=== PATIENT | male | born 1950 | race Hispanic/Latino ===

== ENCOUNTER 2018-12-18 18:07 | Emergency (ER) | payer MEDICARE, BC ==
--- NOTE | 2018-12-18 19:59 | RAD ---
Radiograph left fifth toe 3 views: HISTORY: 68-year-old male status post traumatic injury to fifth toe FINDINGS: There is prominent well-corticated osseous thickening of the entire fifth proximal phalanx except for the head. There is diffuse soft tissue swelling edema of the foot and fifth toe. No periostitis, permeative lesion, osteolytic lesion, or osteoblastic lesion. No dislocation. IMPRESSION: 1. Old, healed fracture deformity of proximal phalanx of left fifth toe. 2. No acute fracture identified. 3. Soft tissue edema of fifth toe.
== END 2018-12-18 20:30 | disposition home or self-care (01) ==
LOC: ERS 18:07
DX: S92.512D Displaced fracture of proximal phalanx of left lesser toe(s), subsequent encounter for fracture with routine healing (principal); S91.312D Laceration without foreign body, left foot, subsequent encounter; I25.2 Old myocardial infarction; G40.909 Epilepsy, unspecified, not intractable, without status epilepticus; Z79.899 Other long term (current) drug therapy

== ENCOUNTER 2019-04-27 10:56 | Observation (INO) | payer MEDICARE, BC ==
[2019-04-27 11:25] LABS: #Eosinphils 0.1 thou/uL (0.0-0.7); #Lymphocytes 1.7 thou/uL (1.20-3.40); #Monocytes 0.5 thou/uL (0.11-0.59); #Neutrophils 3.4 thou/uL (1.40-6.50); %Basophils 0.2 % (0.0-1.0); %Eosinophils 2.4 % (0.0-10.0); %Lymphocytes 28.6 % (21.0-51.0); %Monocytes 9.3 % (0.0-10.0); %Neutrophils 59.5 % (42.0-75.0); Hemoglobin 15.6 g/dL (14.0-18.0); Mean Corpuscular HGB CONC 34.3 g/dL (32.0-36.0); Mean Corpuscular Hemoglobin 33.2 pg (27.0-31.0); Platelet Count 180 thou/uL (130-400); RBC Distribution Width 11.2 % (11.5-14.5); Red Blood Cell (RBC) Count 4.69 mill/uL (4.70-6.10); White Blood Cell (WBC) Count 5.8 thou/uL (4.8-10.8)
--- NOTE | 2019-04-27 11:26 | RAD ---
XR Chest 1 View Portable HISTORY: Left-sided chest pain COMPARISON: 01/23/2016 FINDINGS: The heart size is normal. The lungs are well expanded without focal areas of consolidation, pneumothorax or pleural effusions. Left-sided stimulator device with leads extending into the neck is again seen. IMPRESSION: No radiographic evidence of acute cardiopulmonary process.
[2019-04-27 11:47] LABS: ALT (SGPT) 29 U/L (8-55); AST (SGOT) 31 U/L (5-34); Albumin 4.1 g/dL (3.4-4.8); Alkaline Phosphatase 128 U/L (40-110); Anion Gap 11 mmol/L (10-20); BUN (Urea Nitrogen) 12 mg/dL (8.4-25.7); Bilirubin, Total 0.5 mg/dL (0.2-1.2); CK (CPK) 182 U/L (30-200); Calc. Creatinine Clearance 0 mL/min (70-130); Calcium 8.9 mg/dL (7.8-10.44); Carbon Dioxide 25 mmol/L (23-31); Chloride 104 mmol/L (98-107); Estimated GFR-MDRD Greater than 90; Globulin 3.3 g/dL (2.4-3.5); Glucose 104 mg/dL (80-115); Lipase 50 U/L (8-78); Potassium 4.3 mmol/L (3.5-5.1); Protein, Total 7.4 g/dL (5.8-8.1); Sodium 136 mmol/L (136-145)
[2019-04-27] MEDS ORDERED: Nitroglycerin 2% Ointment 1 INCH/1 GM Packet ONE (12:21)
[2019-04-27] MEDS ORDERED: Aspirin Chewable 81 MG TAB ONE (12:21)
[2019-04-27] MEDS ORDERED: Acetaminophen 325 MG TAB PO PRN (14:58)
[2019-04-27] MEDS ORDERED: Acetaminophen 650 MG Suppository PR PRN (14:58)
[2019-04-27] MEDS ORDERED: Sodium Chloride 0.9% 1,000 ML IV SCH (15:00)
[2019-04-27 15:08] LABS: Troponin I Less than 0.010 ng/mL (< 0.028)
--- NOTE | 2019-04-27 16:04 | HP ---
PRIMARY CARE PHYSICIAN: Asad Rios DO CHIEF COMPLAINT: Chest pain. HISTORY OF PRESENT ILLNESS: Mr. Knox is a 68-year-old gentleman with a past medical history of hypertension, hyperlipidemia, and MN requiring cardiac stents x4 in 2015, who presents with complaints of recurring chest pain for the last 2 days. The patient states it has been lasting up to 15 seconds at a time and states it seems to be brought on with activity. He states at times while sitting, he feels the pain might start to come on. Typically if he remains seated, the sensation will resolve. However, if he gets up and mobilizes the pain will come. He states he normally massages the left side of his chest which helps to alleviate his discomfort. He describes a squeezing pain, which he rates 6 to 8/10 in severity. States the pain is nonradiating. Denies any associated symptoms such as palpitations, shortness of breath, or nausea/vomiting. Denies having any recent cough or hemoptysis. Has not had any trauma and states it is nontender to palpation. All other review of systems are negative. The patient was previously seen by Dr. Al who did a cardiac catheterization in February 2016 presenting with an MN. He had four stents placed. PAST MEDICAL HISTORY: 1. Hypertension. 2. Coronary artery disease. 3. History of MN in February 2016. 4. Hyperlipidemia. 5. History of epilepsy. 6. Sleep apnea on CPAP. 7. Hypothyroidism. PAST SURGICAL HISTORY: 1. Appendectomy. 2. Cardiac stents x4. 3. Nasal reconstruction. 4. Vagus nerve stimulator. SOCIAL HISTORY: The patient lives with his family. He is fully independent and ambulatory at baseline. Does not require any assistive devices. Denies any alcohol consumption or illicit drug use. He is a previous smoker, but quit several years ago. FAMILY HISTORY: Noncontributory. ALLERGIES: NO KNOWN DRUG ALLERGIES. CURRENT MEDICATIONS: 1. Levothyroxine. 2. Phenytoin. 3. Keppra. 4. Klonopin. 5. Plavix. 6. Lisinopril. 7. Atorvastatin. PHYSICAL EXAMINATION: GENERAL: The patient appears well developed, well nourished, is in no acute distress. He is resting comfortably on a stretcher. Denies any pain at present. VITAL SIGNS: Temperature 98.1, pulse 64, blood pressure 134/62, respirations 19 , and O2 saturation 97% on room air. HEENT: Normocephalic and atraumatic. Pupils are equal, round, and reactive to light. Sclerae icterus. Oropharynx is clear. NECK: Supple. LUNGS: Clear to auscultation bilaterally without any wheezes, rales, or rhonchi. CARDIAC: Regular rate and rhythm without audible murmurs, rubs, or gallops. No chest wall deformities or pain with palpation. ABDOMEN: Obese, soft, nontender, nondistended. Normoactive bowel sounds present. No guarding or rigidity. No renal angle tenderness. EXTREMITIES: No lower leg edema. SKIN: Warm and dry. NEUROLOGIC: Alert and oriented x3. No neuro deficits on exam. LABORATORY DATA: White count 5.8, hemoglobin 15.6, hematocrit 45.5, platelets 180. Sodium 136, potassium 4.3, chloride 104, carbon dioxide 25, anion gap 11, BUN 12, creatinine 0.81, GFR 90, glucose 104, calcium 8.9, total bilirubin 0.5, AST 31, ALT 29, alkaline phosphatase 128. CK 182, troponin negative. Albumin 4.1. Lipase normal. IMAGING DATA: Chest x-ray demonstrated no radiographic evidence of acute cardiopulmonary process. He is noted to have a left-sided stimulator device with leads extending into the neck. IMPRESSION AND PLAN: Mr. Knox is a 68-year-old gentleman, who is presenting with recurring chest pain x2 days. He has been referred for management of the following. 1. Acute coronary syndrome, rule out. An EKG done in the emergency department showed normal sinus rhythm with a heart rate of 67. No ST changes or T-wave abnormalities present. The patient was given 324 mg of aspirin and also given Nitro-Bid. He is pain free at present. Initial troponin negative and chest x- ray unremarkable. He will remain under continuous telemetry monitoring and we will continue to trend troponins. He is known to Dr. Al who performed a cardiac catheterization in 2016 with four stents placed at that time. Consultation placed by Dr. Al. 2. Hypertension. Resume home medications once verified. Monitor blood pressure. 3. Hyperlipidemia. Resume home medications once verified. We will add lipid panel morning labs. 4. Hypothyroidism. We will check TSH. Resume home medications once verified. 5. History of epilepsy. We will resume home medications once verified. 6. Deep venous thrombosis prophylaxis, mechanical SCDs. 7. Gastrointestinal prophylaxis. Famotidine 20 mg IV b.i.d. 8. Code status full. Surrogate decision maker is his , Vanessa Knox. The patient's case discussed with attending who agrees with plan of care as described above. Job ID: [id number] MTDD
[2019-04-27 18:13] LABS: Troponin I Less than 0.010 ng/mL (< 0.028)
[2019-04-27 19:13] VITALS: BMI 32.3
[2019-04-27] MEDS ORDERED: clonazePAM 0.5 MG TAB PO SCH (21:00)
[2019-04-27] MEDS ORDERED: Atorvastatin Calcium 40 MG TAB PO SCH (21:00)
[2019-04-27] MEDS: Famotidine/PF 20 mg/2ml Vial SLOW IVP SCH (21:13)
[2019-04-28 05:50] LABS: #Eosinphils 0.2 thou/uL (0.0-0.7); #Monocytes 0.6 thou/uL (0.11-0.59); #Neutrophils 3.1 thou/uL (1.40-6.50); %Basophils 0.5 % (0.0-1.0); %Eosinophils 2.9 % (0.0-10.0); %Lymphocytes 33.9 % (21.0-51.0); %Monocytes 10.1 % (0.0-10.0); %Neutrophils 52.6 % (42.0-75.0); Hemoglobin 14.6 g/dL (14.0-18.0); Mean Corpuscular HGB CONC 34.7 g/dL (32.0-36.0); Mean Corpuscular Hemoglobin 33.2 pg (27.0-31.0); Mean Corpuscular Volume 95.6 fL (78.0-98.0); Mean Platelet Volume 7.8 fL (7.4-10.4); Platelet Count 153 thou/uL (130-400); RBC Distribution Width 11.1 % (11.5-14.5); White Blood Cell (WBC) Count 5.9 thou/uL (4.8-10.8)
[2019-04-28] MEDS ORDERED: Levothyroxine Sodium 50 MCG TAB PO SCH (06:00)
[2019-04-28] MEDS ORDERED: levETIRAcetam 500 MG TAB PO SCH (06:00)
[2019-04-28 06:14] LABS: Anion Gap 10 mmol/L (10-20); BUN (Urea Nitrogen) 10 mg/dL (8.4-25.7); Calc. Creatinine Clearance 133 mL/min (70-130); Calcium 8.7 mg/dL (7.8-10.44); Carbon Dioxide 29 mmol/L (23-31); Cardiac Risk 2.9 (Less than 4.5); Chloride 104 mmol/L (98-107); Cholesterol 112 mg/dl (< 200 Desired); Estimated GFR-MDRD Greater than 90; Glucose 99 mg/dL (80-115); HDL Cholesterol 39 mg/dL (>60 Neg Risk); LDL Cholesterol, Calculated 62 mg/dL; Potassium 4.4 mmol/L (3.5-5.1); Sodium 139 mmol/L (136-145); Triglycerides 53 mg/dL (Less than 150)
[2019-04-28] MEDS: Famotidine/PF 20 mg/2ml Vial SLOW IVP SCH (08:27)
--- NOTE | 2019-04-28 08:36 | CON ---
DATE OF CONSULTATION: REASON FOR CONSULTATION: Chest pain. HISTORY OF PRESENT ILLNESS: Mr. Knox is a very pleasant 68-year-old gentleman whom I have seen and evaluated in the past. He has a history of CAD, status post stent placement with restenosis to the LAD. Last angio was in 2016. He has done well since that time period. He states recently, he began having chest pain within the last week. The pain lasts 10 to 15 seconds. It occurs at both rest and stress. It is not activity-limiting. It is sharp in nature. No other ameliorating, exacerbating, or precipitating factors present. So far, troponins have been negative. HOME MEDICATIONS: Include, 1. Vitamin B12. 2. Aspirin. 3. Atorvastatin. 4. Clonazepam. 5. Dilantin. 6. Synthroid. 7. Clopidogrel. 8. Lisinopril. PAST MEDICAL HISTORY: Diabetes mellitus, seizure disorder, previous ND, status post stent placement, hypertension, CAD, in-stent restenoses of LAD, status post stent, appendectomy, sinus surgery, vagal nerve stimulator for seizure control. FAMILY HISTORY: Negative. SOCIAL HISTORY: No current tobacco or alcohol use. ALLERGIES: NONE. REVIEW OF SYMPTOMS: Ten-point review of systems is reviewed as above, otherwise negative. PHYSICAL EXAMINATION: GENERAL: Patient is a pleasant male, who is in no acute distress. The patient appears their stated age. VITAL SIGNS: Blood pressure 153/67, pulse 56, temperature afebrile. NEUROLOGIC: The patient is alert and oriented x3 with no focal neurologic deficits. HEENT: Sclerae without icterus. Mouth has moist mucous membranes with normal pallor. NECK: No JVD. Carotid upstroke brisk. No bruits bilaterally. LUNGS: Clear to auscultation with unlabored respirations. BACK: No scoliosis or kyphosis. CARDIAC: Regular rate and rhythm with normal S1 and S2. No S3 or S4 noted. No significant rubs, murmurs, thrills, or gallops noted throughout the precordium. PMI is not displaced. There is no parasternal heave. ABDOMEN: Soft, nontender, nondistended. No peritoneal signs present. No hepatosplenomegaly. No abnormal striae. EXTREMITIES: 2+ femoral and 2+ dorsalis pedis pulses. No cyanosis, clubbing, or edema. SKIN: No gross abnormalities. PERTINENT LABORATORY DATA: Hemoglobin 14.6. Creatinine 0.77. Troponin negative. IMPRESSION: 1. Atypical chest pain. 2. Coronary artery disease. 3. Status post stent placement. 4. Seizure disorder. 5. Diabetes mellitus. RECOMMENDATIONS: Mr. Knox' symptoms are not felt to be typical for angina. They occur at both rest and stress. They last for less than 15 seconds. At this point, I recommend a noninvasive stress study to assess for any areas of ischemia. The patient's last stress test in the office dated 2015 showed a normal perfusion study with no ischemia present, LVEF 68%. Further recommendation will be pending the above. Job ID: [id number]
[2019-04-28] MEDS ORDERED: Clopidogrel Bisulfate 75 MG TAB PO SCH (09:00)
[2019-04-28] MEDS ORDERED: Lisinopril 5 MG TAB PO SCH (09:00)
[2019-04-28] MEDS ORDERED: ADENOSINE 60 MG/20 ML VIAL ONE (11:00)
[2019-04-28 13:12] VITALS: TEMP 97.6
--- NOTE | 2019-04-28 13:14 | NM ---
EXAM: CARDIAC SPECT HISTORY: Chest pain, coronary artery disease, IN, stent, hypertension, dyslipidemia TECHNIQUE: A myocardial perfusion scan was performed using the single isotope 1 day protocol with ellie hnetium 99m sestamibi. [10 mCi] was injected intravenously for the rest exam followed by 30 mCi for the stress study. Pharmacologic stress with adenosine was monitored and interpreted by Dr. Barnes FINDINGS: Homogeneous tracer distribution is seen in the myocardial segments on stress and rest image s without fixed or reversible defects. TID ratio is 1.25. Gated SPECT LVEF: 54% Wall motion exam: Normal IMPRESSION: Normal myocardial perfusion scan
[2019-04-28 15:47] VITALS: BP 157/67
--- NOTE | 2019-04-28 15:49 | DIS ---
DATE OF ADMISSION: 04/27/2019 DATE OF DISCHARGE: 04/28/2019 PRIMARY CARE PHYSICIAN: Dr. Timbo Rios. DISCHARGE DIAGNOSES: 1. Atypical chest pain. 2. Coronary artery disease, status post myocardial infarction in the past. 3. Hyperlipidemia. 4. Hypertension. 5. Seizure disorder. 6. Obstructive sleep apnea, on CPAP. 7. Hypothyroidism. CONSULT: Cardiology. HOSPITAL COURSE: A 68-year-old male with known history of coronary artery disease, status post AL and stents, hypertension, hyperlipidemia, and others, admitted with acute onset of chest pain. Symptoms resolved with aspirin and analgesics. Acute myocardial infarction was ruled out with serial troponins. Cardiology consult was obtained due to the patient's risk factors and prior coronary artery disease, status post stent status. Nuclear stress test was recommended. This however came back negative. The patient remained symptom-free and was subsequently discharged home in line with Cardiology recommendation. PHYSICAL EXAMINATION: VITAL SIGNS: Temperature 97.6, pulse 56, respiratory rate 16, SpO2 of 98 on room air, blood pressure is 147/65. GENERAL: Obese male, in no distress. Afebrile, anicteric, acyanotic. HEENT: Normocephalic and atraumatic. Oral mucosa is moist. CARDIOVASCULAR: Regular rhythm and rate, but bradycardic. No obvious murmur was appreciated. RESPIRATORY: Good air entry bilaterally with no crackle or rhonchi or use of accessory muscles. GI: Obese, soft, nontender, nondistended with normal bowel sounds. EXTREMITIES: Grossly normal looking, atraumatic with no obvious edema or erythema. DIRECTOR OF GRADUATE ADMISSIONS: Conscious, alert, oriented x3 with appropriate mental status. Cranial nerves 2 through 12 are grossly intact. DISCHARGE CONDITION: Improved. DISCHARGE DISPOSITION: Home. FOLLOWUP: 1. With PCP in 3 days. 2. With Cardiology in 3 to 4 weeks. DISCHARGE MEDICATIONS: 1. Plavix 75 mg p.o. daily. 2. Keppra 2000 mg p.o. 3. Phenytoin 100 mg q.i.d. 4. Lipitor 40 mg p.o. daily at bedtime. 5. Clonazepam 0.5 mg p.o. daily at bedtime. 6. Levothyroxine 50 mcg p.o. daily in the morning. 7. Lisinopril 5 mg p.o. daily. Job ID: [id number]
--- NOTE | 2019-04-29 12:24 | STRESS ---
Acquisition Time: 2019-04-28 11:31:59 Total Exercise Time: 00:04:00 Test Indications: CHEST PAIN Medications: Protocol: ADENOSINE Max HR: 083 BPM 54% of Pred: 152 BPM Max BP: 122/068 mmHG Max Work Load: 1.0 METS THE PATIENT WAS INJECTED WITH ADENOSINE. HE DID DEVELOP CHEST PAIN. THERE WAS NO SIGNIFICANT ST DEPRESSION. AWAIT NUCLEAR IMAGES FOR FURTHER DIAGNOSIS. Confirmed by GARY REEVES ([id number]), order editor ROSY PARKER ([id number]) on 04/29/2019 12:23:38 PM Referred By: MD Coni FELIX Confirmed By:GARY REEVES
== END 2019-04-28 16:06 | disposition home or self-care (01) ==
LOC: ERS 10:56 → ERHOLD 12:51 → 2SW 18:49
PROVIDERS: ADMIT Internal Medicine; ATTEND Internal Medicine
DX: R07.89 Other chest pain (principal); I25.10 Atherosclerotic heart disease of native coronary artery without angina pectoris; I25.2 Old myocardial infarction; E78.5 Hyperlipidemia, unspecified; I10 Essential (primary) hypertension; G40.909 Epilepsy, unspecified, not intractable, without status epilepticus; G47.33 Obstructive sleep apnea (adult) (pediatric); E03.9 Hypothyroidism, unspecified; Z79.02 Long term (current) use of antithrombotics/antiplatelets; Z79.899 Other long term (current) drug therapy; Z99.89 Dependence on other enabling machines and devices; Z95.5 Presence of coronary angioplasty implant and graft
CPT/HCPCS: 71045; 78452; 80048; 80061; 82550; 83690; 83735; 83880; 84484 ×2; 85025; 93005; 93017; 94760; 96361 ×2; 96374; 96376; 99285; A9500; G0378 ×3; 36415; 80053; 84443; J0153; S0028

== ENCOUNTER 2019-06-16 10:01 | Emergency (ER) | payer MEDICARE, BC ==
--- NOTE | 2019-06-16 10:41 | RAD ---
XR Chest 1 View Portable HISTORY: Chest pain COMPARISON: 04/27/2019 FINDINGS: The heart size is normal. The lungs are well expanded without focal areas of consolidation, pneumothorax or pleural effusions. Left-sided stimulator device with leads extending into the neck is again seen. There is stable elevat ion the right hemidiaphragm. IMPRESSION: No radiographic evidence of acute cardiopulmonary process.
[2019-06-16 11:03] LABS: #Eosinphils 0.1 thou/uL (0.0-0.7); #Lymphocytes 1.8 thou/uL (1.20-3.40); #Monocytes 0.5 thou/uL (0.11-0.59); #Neutrophils 3.1 thou/uL (1.40-6.50); %Basophils 0.2 % (0.0-1.0); %Eosinophils 2.2 % (0.0-10.0); %Lymphocytes 33.3 % (21.0-51.0); %Monocytes 8.4 % (0.0-10.0); %Neutrophils 55.9 % (42.0-75.0); Hemoglobin 14.5 g/dL (14.0-18.0); Mean Corpuscular HGB CONC 34.3 g/dL (32.0-36.0); Mean Corpuscular Hemoglobin 32.8 pg (27.0-31.0); Mean Corpuscular Volume 95.5 fL (78.0-98.0); Platelet Count 161 thou/uL (130-400); RBC Distribution Width 11.1 % (11.5-14.5); Red Blood Cell (RBC) Count 4.42 mill/uL (4.70-6.10); White Blood Cell (WBC) Count 5.5 thou/uL (4.8-10.8)
[2019-06-16] MEDS ORDERED: Aspirin Chewable 81 MG TAB ONE ×2 (11:07→11:13)
[2019-06-16] MEDS ORDERED: Nitroglycerin 2% Ointment 1 INCH/1 GM Packet ONE (11:13)
[2019-06-16 11:30] LABS: ALT (SGPT) 22 U/L (8-55); AST (SGOT) 26 U/L (5-34); Alkaline Phosphatase 137 U/L (40-110); Anion Gap 10 mmol/L (10-20); BUN (Urea Nitrogen) 10 mg/dL (8.4-25.7); Bilirubin, Total 0.4 mg/dL (0.2-1.2); Calc. Creatinine Clearance 0 mL/min (70-130); Calcium 8.6 mg/dL (7.8-10.44); Carbon Dioxide 27 mmol/L (23-31); Chloride 103 mmol/L (98-107); Estimated GFR-MDRD Greater than 90; Globulin 3.3 g/dL (2.4-3.5); Glucose 95 mg/dL (80-115); Lipase 42 U/L (8-78); Protein, Total 7.3 g/dL (5.8-8.1); Sodium 136 mmol/L (136-145)
[2019-06-16 14:45] LABS: Troponin I 0.021 ng/mL (< 0.028)
== END 2019-06-16 14:59 | disposition home or self-care (01) ==
LOC: ERS 10:01
DX: R07.9 Chest pain, unspecified (principal); I25.2 Old myocardial infarction; I10 Essential (primary) hypertension; G40.909 Epilepsy, unspecified, not intractable, without status epilepticus; Z95.5 Presence of coronary angioplasty implant and graft; Z79.899 Other long term (current) drug therapy; Z79.82 Long term (current) use of aspirin
CPT/HCPCS: 71045; 80053; 83690; 84484; 85025; 93005

== ENCOUNTER 2019-08-21 19:30 | Outpatient (CLI) | payer MEDICARE, BC | END 2019-08-21 19:31 | disposition home or self-care (01) | LOC: SLEEPLAB 19:30 | PROVIDERS: ATTEND Family Medicine | DX: G47.33 Obstructive sleep apnea (adult) (pediatric) (principal); R06.83 Snoring; I10 Essential (primary) hypertension; I25.10 Atherosclerotic heart disease of native coronary artery without angina pectoris; G45.9 Transient cerebral ischemic attack, unspecified; R56.9 Unspecified convulsions | CPT/HCPCS: 95811 ==

== ENCOUNTER 2020-01-06 18:43 | Emergency (ER) | payer MEDICARE, BC, OTHER ==
[2020-01-07 14:13] LABS: SARS-CoV-2 MS2 Positive; SARS-CoV-2 N Gene Positive; SARS-CoV-2 S Gene Positive; SARS-CoV-2 by NAA DETECTED (NotDetected); SARS-CoV-2 orf1ab Positive
== END 2020-01-06 19:13 | disposition home or self-care (01) ==
LOC: ERS 18:43
DX: U07.1 COVID-19 (principal); I10 Essential (primary) hypertension; I25.2 Old myocardial infarction; G40.909 Epilepsy, unspecified, not intractable, without status epilepticus; Z79.82 Long term (current) use of aspirin; Z79.899 Other long term (current) drug therapy
CPT/HCPCS: 99283; U0003; 87635

== ENCOUNTER 2022-06-26 13:26 | Outpatient (CLI) | payer MEDICARE, BC | END 2022-06-26 13:27 | disposition home or self-care (01) | LOC: PET 13:26 | PROVIDERS: ATTEND Psychiatry & Neurology Neurology | DX: G40.209 Localization-related (focal) (partial) symptomatic epilepsy and epileptic syndromes with complex partial seizures, not intractable, without status epilepticus (principal); R41.3 Other amnesia | CPT/HCPCS: 78803; 95816; 95957; A9552 ==

== ENCOUNTER 2023-05-31 00:19 | Emergency (ER) | payer MEDICARE, BC ==
[2023-05-31 01:09] LABS: #Monocytes 0.7 thou/uL (0.11-0.59); %Basophils 0.2 % (0.0-1.0); %Eosinophils 0.1 % (0.0-10.0); %Lymphocytes 6.7 % (21.0-51.0); %Monocytes 7.1 % (0.0-10.0); %Neutrophils 85.7 % (42.0-75.0); Hematocrit 37.5 % (42.0-52.0); Hemoglobin 13.5 g/dL (14.0-18.0); Mean Corpuscular Hemoglobin 32.8 pg (27.0-31.0); Mean Corpuscular Volume 91.2 fl (78.0-98.0); Mean Platelet Volume 10.8 fL (7.4-10.4); Platelet Count 137 10x3/uL (130-400); RBC Distribution Width 11.6 % (11.5-14.5); Red Blood Cell (RBC) Count 4.11 mill/uL (4.70-6.10); White Blood Cell (WBC) Count 9.3 10x3/uL (4.8-10.8)
[2023-05-31] MEDS ORDERED: Acetaminophen 500 MG TAB ONE (01:31)
[2023-05-31] MEDS ORDERED: Boostrix 0.5 ML (Tdap) VIAL (>/=7 yrs of age) ONE (01:31)
[2023-05-31 01:37] LABS: Troponin I Less than 0.010 ng/mL (< 0.028)
[2023-05-31 01:38] LABS: ALT (SGPT) 22 U/L (8-55); AST (SGOT) 31 U/L (5-34); Albumin 3.7 g/dL (3.4-4.8); Alkaline Phosphatase 94 U/L (40-110); Anion Gap 14 mmol/L (10-20); BUN (Urea Nitrogen) 12 mg/dL (8.4-25.7); Bilirubin, Total 0.8 mg/dL (0.2-1.2); CK (CPK) 243 U/L (30-200); Calc. Creatinine Clearance 0 mL/min (70-130); Calcium 8.5 mg/dL (7.8-10.44); Carbon Dioxide 23 mmol/L (23-31); Chloride 98 mmol/L (98-107); Estimated GFR 93; Globulin 3.1 g/dL (2.4-3.5); Glucose 150 mg/dL (83-110); Magnesium 1.5 mg/dL (1.6-2.6); Potassium 3.9 mmol/L (3.5-5.1); Protein, Total 6.8 g/dL (5.8-8.1); Sodium 131 mmol/L (136-145)
[2023-05-31 01:41] LABS: Bacteria/HPF None Seen HPF (None Seen); Bilirubin Negative (Negative); Blood, Urine Negative (Negative); CAUTI Indications for Culture Dysuria,urgency,freq; Clarity Clear (Clear); Glucose, Urine (Dipstick) Normal (Negative); Ketone, Urine Negative (Negative); Leukocyte Negative Leu/uL (Negative); Nitrite Negative (Negative); Protein, Urine (Dipstick) Negative (Neg-Trace); RBC/HPF 0-3 HPF (0-3); Specific Gravity, Urine 1.015 (1.002-1.036); Squamous Epithelial 0-3 HPF (0-3); Urobilinogen Normal mg/dL (Less than 2); WBC/HPF 0-3 HPF (0-3); pH, Urine 7.5 (5.0-9.0)
[2023-05-31 01:53] LABS: Urine Culture Reflex No No
[2023-05-31] MEDS ORDERED: Magnesium 2 GM/50 ML BAG (IN WATER) ONE (02:51)
== END 2023-05-31 03:48 | disposition home or self-care (01) ==
LOC: ERS 00:19
DX: S80.02XA Contusion of left knee, initial encounter (principal); S80.01XA Contusion of right knee, initial encounter; E86.0 Dehydration; E83.42 Hypomagnesemia; I10 Essential (primary) hypertension; G40.909 Epilepsy, unspecified, not intractable, without status epilepticus; Z79.899 Other long term (current) drug therapy; Z23 Encounter for immunization; W19.XXXA Unspecified fall, initial encounter
CPT/HCPCS: 36415; 70450; 80053; 81001; 82550; 83605; 83735; 83880; 84443; 84484; 85025; 90471; 90715; 93005; 96374; J3475